=== PATIENT | female | born 1960 | race Caucasian/White ===

== ENCOUNTER 2017-06-03 14:24 | Emergency (ER) | payer OTHER ==
[~2017-06-03] VITALS: Ht 167.6 cm; Wt 60.0 kg
[2017-06-03 14:26] VITALS: BP 124/78; PULSE 80; RESP 13; TEMP 98.2; O2SAT 98
--- NOTE | 2017-06-03 15:12 | RADRPT ---
EXAM DATE/TIME: 06/03/2017 14:59 [place] COMPARISON: No previous studies available for comparison. INDICATIONS : Right wrist pain post fall. MEDICAL HISTORY : None. SURGICAL HISTORY : None. ENCOUNTER: Initial ACUITY: 1 day PAIN SCORE: 9/10 LOCATION: Right wrist. FINDINGS: The examination demonstrates an impacted, dorsally angulated fracture of the distal right radius. The remainder the osseous structures are intact. CONCLUSION: 1. Impacted Colles' fracture of the distal right radius. There is mild dorsal angulation. Jeremy Cabrales MD on June 03, 2017 at 15:10 Board Certified Radiologist. This report was verified electronically.
[2017-06-03] MEDS ORDERED: ACETAMINOPHEN/HYDROcodone 325 MG/5 MG TAB PO ONE (15:30)
[2017-06-03 15:38] VITALS: BP 133/78; PULSE 64; RESP 15; O2SAT 98
[2017-06-03] MEDS ORDERED: PERC5TAB12 PO (16:36)
--- NOTE | 2017-06-03 16:36 | PD ---
HPI Chief Complaint: Injury Time Seen by Provider: 15:20 Travel History International Travel<30 days: No Contact w/Intl Traveler<30days: No Traveled to known affect area: No History of Present Illness HPI Patient is a 56 year old female who comes in complaining of pain and swelling to her right wrist after she fell while washing her car. She says she fell onto her wrist. She denies any other injuries. She denies pain to her shoulder or elbow or any issues with her hips or legs. ON LICENSE OF [facility] Past Medical History Medical History: Denies Significant Hx Diminished Hearing: No ?: Not Menopausal: Yes Social History Alcohol Use: Yes ([facility]) Tobacco Use: No Substance Use: No Allergies-Medications (Allergen,Severity, Reaction): Coded Allergies: No Known Allergies (Unverified , 06/03/17) Reported Meds & Prescriptions Reported Meds & Active Scripts Active No Active Prescriptions or Reported Medications Review of Systems General / Constitutional: No: Fever, Chills HENT: No: Headaches, Lightheadedness Cardiovascular: No: Chest Pain or Discomfort Respiratory: No: Shortness of Breath Gastrointestinal: No: Nausea, Vomiting Musculoskeletal: Positive: Limited ROM, Edema, Pain Skin: No Rash, No Change in Pigmentation Neurologic: No: Weakness, Dizziness Physical Exam Narrative GENERAL: Awake and alert, in obvious pain. SKIN: Focused skin assessment warm/dry. HEAD: Atraumatic. Normocephalic. EYES: Pupils equal and round. No scleral icterus. ENT: Mucous membranes pink and moist. CARDIOVASCULAR: Regular rate and rhythm. No murmur appreciated. RESPIRATORY: No accessory muscle use. Clear to auscultation. Breath sounds equal bilaterally. MUSCULOSKELETAL: No clubbing. No cyanosis. Obvious deformity of the right wrist with edema to the lateral side of the wrist. Radial pulse intact. NEUROLOGICAL: Awake and alert. No obvious cranial nerve deficits. Motor grossly within normal limits. Normal speech. Sensation to the right hand and fingers intact. Data Data Last Documented VS Vital Signs Date Time Temp Pulse Resp B/P (MAP) Pulse Ox O2 Delivery O2 Flow Rate FiO2 06/03/17 15:38 64 15 133/78 (96) 98 Room Air 06/03/17 14:26 98.2 Orders Orders Wrist, Complete (Cyt1upc) (06/03/17 ) Splint Or Brace Apply/Monitor (06/03/17 15:29) Acetamin-Hydrocod 325-5 Mg ([place] 5-325 (06/03/17 15:30) MDM Medical Decision Making Medical Screen Exam Complete: Yes Emergency Medical Condition: Yes Medical Record Reviewed: Yes Differential Diagnosis radial fracture vs ulnar fracture vs wrist sprain Narrative Course Patient is a 56-year-old female who comes in complaining of pain to her wrist after a fall. Exam shows obvious deformity and swelling of the right wrist. X- ray obtained shows a Colles' fracture. Patient was placed in a sugar tong splint. I spoke with Dr. Jaimes of orthopedics who suggests follow-up in her office. Patient given the information and advised to call tomorrow morning for an appointment. Given a prescription for Percocet to take as needed for pain. Advised to apply ice and keep her splint on until she sees Dr. Jaimes. Diagnosis Primary Impression: Wrist fracture, right Qualified Codes: S62.101A - Fracture of unspecified carpal bone, right wrist, initial encounter for closed fracture Referrals: Janie Jaimes MD call for appointment Patient Instructions: General Instructions, Wrist Fracture in Adults (ED) Additional Instructions: Follow up with orthopedics this week. Take pain medicine as needed. Make sure to wear your splint until you see orthopedics. Return to the ED as needed for any worsening symptoms. Scripts Oxycodone-Acetaminophen (Percocet) 5-325 mg Tab 1 TAB PO Q6H Y for PAIN, #14 TAB 0 Refills Prov: Sravanthi Dixon MD 06/03/17 Disposition: 01 DISCHARGE HOME Condition: Stable Sravanthi Dixon MD Jun 03, 2017 16:36
[2017-06-03 16:52] VITALS: BP 131/86; PULSE 86; RESP 16; O2SAT 98
== END 2017-06-03 16:54 | disposition home or self-care (01) ==
LOC: NEPD 14:24
DX: S52.531A Colles' fracture of right radius, initial encounter for closed fracture (principal); W19.XXXA Unspecified fall, initial encounter; Y93.89 Activity, other specified
CPT/HCPCS: 29125; 73110